=== PATIENT | male | born 1955 | race Caucasian/White ===

== ENCOUNTER 2023-08-01 06:40 | Emergency (ER) | payer OTHER ==
[~2023-08-01] VITALS: Ht 182.9 cm; Wt 120.2 kg
[2023-08-01 06:59] VITALS: BP 125/81; PULSE 61; RESP 19; TEMP 97.1; O2SAT 96
[2023-08-01 07:13] VITALS: O2SAT 96
[2023-08-01] MEDS ORDERED: CEPH500C16 PO (07:46)
[2023-08-01] MEDS ORDERED: BACI-352 TP (07:46)
== END 2023-08-01 07:57 | disposition home or self-care (01) ==
LOC: MED 06:40
DX: N49.2 Inflammatory disorders of scrotum (principal); T81.33XA Disruption of traumatic injury wound repair, initial encounter; I10 Essential (primary) hypertension; Z79.899 Other long term (current) drug therapy
CPT/HCPCS: 99283